=== PATIENT | female | born 1940 | race Caucasian/White ===

== ENCOUNTER 2018-08-13 14:24 | Emergency (ER) | payer MEDICARE ==
[2018-08-13] MEDS ORDERED: IBUPROFEN 400 MG TABLET ONE (15:02)
[2018-08-13] MEDS ORDERED: TETANUS/DIPHTHERIA TOXOID [ADULT] 0.5 ML VIAL IM ONE (15:02)
[2018-08-13] MEDS ORDERED: LIDOCAINE HCL 1% 20 ML VIAL ONE (15:17)
== END 2018-08-13 16:14 | disposition home or self-care (01) ==
LOC: EDH 14:24
DX: S61.211A Laceration without foreign body of left index finger without damage to nail, initial encounter (principal); E78.5 Hyperlipidemia, unspecified; M81.0 Age-related osteoporosis without current pathological fracture; Z88.6 Allergy status to analgesic agent; W26.0XXA Contact with knife, initial encounter; Y93.G3 Activity, cooking and baking; Y92.098 Other place in other non-institutional residence as the place of occurrence of the external cause; Y99.8 Other external cause status
CPT/HCPCS: 12001; 73140; 90471; 90714